=== PATIENT | female | born 1995 ===

== ENCOUNTER 2018-07-15 03:10 | Emergency (ER) | payer OTHER ==
[~2018-07-15] VITALS: Ht 167.6 cm; Wt 77.1 kg
[2018-07-15] MEDS ORDERED: ESTARYLLA1 EACH (03:18)
[2018-07-20] MEDS ORDERED: ESTARYLLA1 EACH PO (10:27)
== END 2018-07-15 10:22 | disposition home or self-care (01) ==
LOC: ER 03:10
DX: K80.20 Calculus of gallbladder without cholecystitis without obstruction (principal)

== ENCOUNTER 2018-07-16 14:15 | Outpatient (CLI) | payer OTHER ==
[~2018-07-16 14:15] MED LIST: ESTARYLLA1 EACH
[2018-07-20] MEDS ORDERED: ESTARYLLA1 EACH PO (10:27)
== END 2018-07-16 14:25 | disposition home or self-care (01) ==
LOC: RAD 14:15
DX: Z01.811 Encounter for preprocedural respiratory examination (principal)

== ENCOUNTER 2018-07-24 04:47 | Day surgery (SDC) | payer OTHER ==
[~2018-07-24 04:47] MED LIST changes: +ESTARYLLA1 EACH PO
== END 2018-07-24 11:20 | disposition home or self-care (01) ==
LOC: CIR.AMB 04:47
DX: K80.10 Calculus of gallbladder with chronic cholecystitis without obstruction (principal)